=== PATIENT | male | born 1935 | race Asian ===

== ENCOUNTER 2018-05-04 03:27 | Observation (INO) | payer MEDICARE ==
[~2018-05-04] VITALS: Ht 157.5 cm; Wt 52.0 kg
[2018-05-04 04:00] LABS: BASOPHILS # (AUTO) 0.02 x10^3/uL (0-0.1); BASOPHILS % (AUTO) 0 % (0-1); EOSINOPHILS # (AUTO) 0.37 x10^3/uL (0-0.4); EOSINOPHILS % (AUTO) 4 % (1-7); LYMPHOCYTES # (AUTO) 1.35 x10^3/uL (1-3.4); LYMPHOCYTES % (AUTO) 14 % (22-44); MD NO; MEAN CORPUSCULAR HEMOGLOBIN 31.9 pg (27.5-34.5); MEAN CORPUSCULAR HGB CONC 33.8 g/dL (33.2-36.2); MEAN CORPUSCULAR VOLUME 94.3 fL (81-97); MEAN PLATELET VOLUME 9.6 fL (7.4-10.4); MONOCYTES # (AUTO) 0.98 x10^3/uL (0.2-0.8); MONOCYTES % (AUTO) 10 % (2-9); NEUTROPHILS # (AUTO) 6.82 x10^3/uL (1.8-6.8); NEUTROPHILS % (AUTO) 72 % (42-75); PLATELET COUNT 240 x10^3/uL (130-400); RED BLOOD COUNT 4.34 x10^6/uL (4.38-5.82); RED CELL DISTRIBUTION WIDTH 14.5 % (9.4-14.8)
--- NOTE | 2018-05-04 04:00 | NUR ---
PT PRESENTS TO ED C/O CPx30 MIN FISH WORM GROWER. STATES CP SUBSTERNAL/EPIGASTRIC THAT IS BURNING. STATES NO CARDIAC HX. IV ESTABLISHED FISH WORM GROWER AND 324 MG ASPIRIN GIVEN PER [facility]. ALL MONITORING APPLIED. VSS. CALL LIGHT WITHIN REACH.
[2018-05-04 04:06] LABS: ALANINE AMINOTRANSFERASE 23 U/L (12-78); ALBUMIN 3.8 g/dL (3.4-5.0); ANION GAP 7 mmol/L (5-15); CALCIUM 8.3 mg/dL (8.5-10.1); CHLORIDE 115 mmol/L (98-107); CREATININE 1.64 mg/dL (0.7-1.3)
[2018-05-04 04:10] LABS: ALKALINE PHOSPHATASE 36 U/L (45-117); BILIRUBIN,TOTAL 0.9 mg/dL (0.2-1.0); TOTAL PROTEIN 6.4 g/dL (6.4-8.2); TROPONIN I 0.016 ng/mL (0.000-0.045)
--- NOTE | 2018-05-04 04:57 | NUR ---
NADN. NO IMMEDIATE NEEDS FROM PT. CALL LIGHT WITHIN REACH. TBADM. AWAITING ADM BED.
[2018-05-04] MEDS ORDERED: hydrALAzine 20 MG/ML, 1ML IVPush PRN (05:00)
[2018-05-04] MEDS ORDERED: ACETAMINOPHEN 325 MG TABLET PO PRN ×2 (05:00→09:00)
[2018-05-04] MEDS ORDERED: SODIUM CHLORIDE 0.9% 1,000 ML IV SCH (05:00)
[2018-05-04] MEDS ORDERED: HEPARIN 5,000 UNITS/ML, 1ML SQ SCH (05:00)
[2018-05-04 05:46] VITALS: BP 142/87
[2018-05-04 05:51] VITALS: BP 142/87
[2018-05-04] MEDS ORDERED: HEPARIN 25,000 UNITS/500ML PMX 500 ML IV PRN (06:00)
[2018-05-04] MEDS ORDERED: HEPARIN 5,000 UNITS/ML, 1ML IV ONE (06:00)
[2018-05-04] MEDS ORDERED: HEPARIN 5,000 UNITS/ML, 1ML IV PRN (06:00)
[2018-05-04] MEDS ORDERED: ASPIRIN 325 MG TABLET PO SCH (06:00)
[2018-05-04] MEDS ORDERED: ALBU8.5H8 PO (06:03)
[2018-05-04 08:19] LABS: TROPONIN I 0.025 ng/mL (0.000-0.045)
[2018-05-04 09:00] VITALS: BP 142/77
[2018-05-04] MEDS ORDERED: AMLODIPINE 5 MG TABLET PO SCH (09:00)
[2018-05-04] MEDS ORDERED: MAGNESIUM CITRATE 300ML ORAL SOL PO ONE (09:00)
[2018-05-04] MEDS ORDERED: LISI-167 PO (10:16)
[2018-05-04] MEDS ORDERED: AMLO-150 PO (10:16)
[2018-05-04 12:18] LABS: TROPONIN I < 0.015 ng/mL (0.000-0.045)
[2018-05-04] MEDS ORDERED: ATORVASTATIN 40 MG TABLET PO SCH (21:00)
[2018-05-05] MEDS ORDERED: SODIUM CHLORIDE 0.9% 1,000 ML IV SCH (05:00)
== END 2018-05-04 15:22 | disposition home or self-care (01) ==
LOC: ED 03:59 → EDIP 04:23 → INTOOBSV 04:23 → 5SO 05:38
PROVIDERS: ADMIT Family Medicine; ATTEND Family Medicine
DX: R07.89 Other chest pain (principal); I10 Essential (primary) hypertension; E87.0 Hyperosmolality and hypernatremia; J44.9 Chronic obstructive pulmonary disease, unspecified; K59.00 Constipation, unspecified; N28.9 Disorder of kidney and ureter, unspecified; Z79.899 Other long term (current) drug therapy
CPT/HCPCS: 36415; 74022; 80053; 83690; 84484; 85025; 85520; 93005; 96365; 96366; 96376; 99284; G0378; J1644; J7030

== ENCOUNTER 2018-07-26 10:53 | Inpatient (IN) | payer MEDICARE ==
[~2018-07-26] VITALS: Ht 157.5 cm; Wt 55.3 kg
[~2018-07-26 10:53] MED LIST: ALBU8.5H8 PO; AMLO-150 PO; LISI-167 PO; LISI5TAB7 PO; METO25TA35 PO
--- NOTE | 2018-07-26 12:04 | NUR ---
PT SLEEPING IN [place], ON MONITOR, NO NEEDS AT THIS TIME. CALL LIGHT WITHIN REACH. AWAITING LAB RESULTS
[2018-07-26 12:17] LABS: MICROSCOPIC NOT IND
[2018-07-26 12:18] LABS: CULTURE INDICATED? NO
[2018-07-26 12:28] LABS: ALBUMIN 3.5 g/dL (3.4-5.0); ANION GAP 5 mmol/L (5-15); CALCIUM 7.9 mg/dL (8.5-10.1); CHLORIDE 118 mmol/L (98-107)
[2018-07-26 12:31] LABS: ALANINE AMINOTRANSFERASE 31 U/L (12-78); ALKALINE PHOSPHATASE 30 U/L (45-117); CREATININE 1.39 mg/dL (0.7-1.3); TOTAL PROTEIN 6.1 g/dL (6.4-8.2); TROPONIN I < 0.015 ng/mL (0.000-0.045)
--- NOTE | 2018-07-26 13:02 | NUR ---
CBC NEEDS TO BE REDRAWN, LAB TO COME FOR REDRAW
[2018-07-26 13:31] LABS: BASOPHILS # (AUTO) 0.06 x10^3/uL (0-0.1); BASOPHILS % (AUTO) 1 % (0-1); EOSINOPHILS # (AUTO) 0.23 x10^3/uL (0-0.4); EOSINOPHILS % (AUTO) 3 % (1-7); LYMPHOCYTES # (AUTO) 0.98 x10^3/uL (1-3.4); LYMPHOCYTES % (AUTO) 10 % (22-44); MD NO; MEAN CORPUSCULAR HGB CONC 32.7 g/dL (33.2-36.2); MEAN PLATELET VOLUME 10.2 fL (7.4-10.4); MONOCYTES # (AUTO) 0.68 x10^3/uL (0.2-0.8); MONOCYTES % (AUTO) 7 % (2-9); NEUTROPHILS # (AUTO) 7.51 x10^3/uL (1.8-6.8); NEUTROPHILS % (AUTO) 79 % (42-75); PLATELET COUNT 209 x10^3/uL (130-400); RED BLOOD COUNT 4.51 x10^6/uL (4.38-5.82); RED CELL DISTRIBUTION WIDTH 15.5 % (9.4-14.8)
--- NOTE | 2018-07-26 14:08 | NUR ---
PT AMBULATING UNSTEADY AND VERY SLOWLY, STATES HE FEELS SOB AND VERY WEAK. NOTIFIED. PT BACK TO BED AND PLACED ON MONITOR
[2018-07-26] MEDS ORDERED: ONDANSETRON 2MG/ML, 2ML IVPush PRN (15:30)
[2018-07-26] MEDS ORDERED: DEXTROSE 5% 1,000 ML IV SCH (15:30)
[2018-07-26] MEDS ORDERED: TEMAZEPAM 15 MG CAPSULE PO PRN (15:30)
[2018-07-26] MEDS ORDERED: ACETAMINOPHEN 325 MG TABLET PO PRN (15:30)
[2018-07-26] MEDS ORDERED: hydrALAzine 20 MG/ML, 1ML IVPush PRN (15:30)
--- NOTE | 2018-07-26 15:32 | NUR ---
REPORT TO IVANA BEST
[2018-07-26 16:02] VITALS: BP 123/80
[2018-07-26] MEDS: AZITHROMYCIN 500 MG in SODIUM CHLORIDE 0.9% 250 ML IV SCH (16:57)
[2018-07-26] MEDS: GUAIFENESIN 200 MG TABLET PO SCH ×2 (16:57→20:35)
[2018-07-26] MEDS: methylPREDNISolone SOD SUCC 125 MG/2 ML IVPush SCH ×2 (16:57→20:33)
[2018-07-26] MEDS ORDERED: ALBUTEROL SULFATE 2.5 MG/3 ML NPPB PRN (17:00)
[2018-07-26] MEDS: HEPARIN 5,000 UNITS/ML, 1ML SQ SCH ×2 (17:03→23:45)
[2018-07-26 21:18] VITALS: BP 125/81
[2018-07-27 02:34] VITALS: BP 108/68
[2018-07-27] MEDS: methylPREDNISolone SOD SUCC 125 MG/2 ML IVPush SCH ×4 (03:35→21:54)
[2018-07-27 05:30] LABS: MEAN CORPUSCULAR HEMOGLOBIN 32.3 pg (27.5-34.5); MEAN CORPUSCULAR HGB CONC 32.8 g/dL (33.2-36.2); MEAN CORPUSCULAR VOLUME 98.3 fL (81-97); MEAN PLATELET VOLUME 10.4 fL (7.4-10.4); PLATELET COUNT 204 x10^3/uL (130-400); RED BLOOD COUNT 4.59 x10^6/uL (4.38-5.82); RED CELL DISTRIBUTION WIDTH 14.7 % (9.4-14.8)
[2018-07-27 05:40] LABS: CHLORIDE 112 mmol/L (98-107)
[2018-07-27 05:54] LABS: ALANINE AMINOTRANSFERASE 27 U/L (12-78); ALBUMIN 3.5 g/dL (3.4-5.0); ALKALINE PHOSPHATASE 32 U/L (45-117); ANION GAP 9 mmol/L (5-15); BILIRUBIN,TOTAL 1.2 mg/dL (0.2-1.0); CALCIUM 8.5 mg/dL (8.5-10.1); TOTAL PROTEIN 6.2 g/dL (6.4-8.2)
[2018-07-27 05:59] LABS: BASOPHILS % (AUTO) 0 % (0-1); EOSINOPHILS % (AUTO) 0 % (1-7); LYMPHOCYTES # (AUTO) 0.45 x10^3/uL (1-3.4); LYMPHOCYTES % (AUTO) 5 % (22-44); MD SCAN; MONOCYTES # (AUTO) 0.03 x10^3/uL (0.2-0.8); MONOCYTES % (AUTO) 0 % (2-9); NEUTROPHILS # (AUTO) 9.45 x10^3/uL (1.8-6.8); NEUTROPHILS % (AUTO) 95 % (42-75)
[2018-07-27 07:07] VITALS: BP 122/73
[2018-07-27] MEDS: HEPARIN 5,000 UNITS/ML, 1ML SQ SCH ×2 (08:28→15:34)
[2018-07-27] MEDS: GUAIFENESIN 200 MG TABLET PO SCH ×3 (08:28→21:54)
[2018-07-27] MEDS: AMLODIPINE 5 MG TABLET PO SCH (08:29)
[2018-07-27] MEDS ORDERED: AMLODIPINE 5 MG TABLET PO SCH (09:00)
[2018-07-27 14:31] VITALS: BP 120/74
[2018-07-27] MEDS: AZITHROMYCIN 500 MG in SODIUM CHLORIDE 0.9% 250 ML IV SCH (15:35)
[2018-07-27 20:34] VITALS: BP 104/65
[2018-07-28] MEDS: HEPARIN 5,000 UNITS/ML, 1ML SQ SCH ×4 (00:34→23:49)
[2018-07-28 02:12] VITALS: BP 107/70
[2018-07-28] MEDS: methylPREDNISolone SOD SUCC 125 MG/2 ML IVPush SCH ×4 (04:16→22:11)
[2018-07-28] MEDS: AMLODIPINE 5 MG TABLET PO SCH (09:27)
[2018-07-28] MEDS: GUAIFENESIN 200 MG TABLET PO SCH ×3 (09:28→20:13)
[2018-07-28 09:34] VITALS: BP 108/72
[2018-07-28 10:20] VITALS: BP 123/71
[2018-07-28 10:21] VITALS: BP 121/70
[2018-07-28 11:07] LABS: TROPONIN I < 0.015 ng/mL (0.000-0.045)
[2018-07-28 14:00] VITALS: BP 120/75
[2018-07-28] MEDS: AZITHROMYCIN 500 MG in SODIUM CHLORIDE 0.9% 250 ML IV SCH (15:42)
[2018-07-28 19:49] VITALS: BP 120/75
[2018-07-29 03:25] VITALS: BP 103/65
[2018-07-29] MEDS: methylPREDNISolone SOD SUCC 125 MG/2 ML IVPush SCH ×3 (04:17→17:14)
[2018-07-29 07:13] VITALS: BP 101/58
[2018-07-29] MEDS: HEPARIN 5,000 UNITS/ML, 1ML SQ SCH ×2 (07:38→17:13)
[2018-07-29] MEDS: GUAIFENESIN 200 MG TABLET PO SCH ×2 (07:38→17:13)
[2018-07-29 10:27] VITALS: BP 120/70
[2018-07-29] MEDS: AMLODIPINE 5 MG TABLET PO SCH (10:28)
[2018-07-29 14:54] VITALS: BP 125/82
[2018-07-29] MEDS: AZITHROMYCIN 500 MG in SODIUM CHLORIDE 0.9% 250 ML IV SCH (15:01)
[2018-07-29] MEDS ORDERED: LACT1TAB13 PO (16:26)
[2018-07-29] MEDS ORDERED: AZIT500T PO (16:26)
[2018-07-29] MEDS ORDERED: PRED10TA PO (16:26)
[2018-07-29] MEDS ORDERED: GUAI200T3 PO (16:26)
[2018-07-29] MEDS ORDERED: FLUT1DIS IH (16:26)
[2018-07-29] MEDS ORDERED: TIOT18CA INH (16:26)
== END 2018-07-29 18:28 | disposition home or self-care (01) | DRG 682 ==
LOC: ED 12:30 → EDIP 14:41 → 4NOR 15:56
PROVIDERS: ADMIT Internal Medicine; ATTEND Internal Medicine
DX: N17.0 Acute kidney failure with tubular necrosis (principal); J96.00 Acute respiratory failure, unspecified whether with hypoxia or hypercapnia; J44.1 Chronic obstructive pulmonary disease with (acute) exacerbation; E87.0 Hyperosmolality and hypernatremia; J44.0 Chronic obstructive pulmonary disease with (acute) lower respiratory infection; I11.9 Hypertensive heart disease without heart failure; J20.9 Acute bronchitis, unspecified; Z60.2 Problems related to living alone; E86.0 Dehydration; Z87.891 Personal history of nicotine dependence
CPT/HCPCS: 36415; 71045; 80053; 81003; 82306; 83735; 84100; 84443; 84484; 85025; 93005; 99285; G0378; J0456; J1644; J7070; J2930; J7050

== ENCOUNTER 2018-08-05 02:25 | Inpatient (IN) | payer MEDICARE ==
[~2018-08-05] VITALS: Ht 157.5 cm; Wt 52.2 kg
[~2018-08-05 02:25] MED LIST changes: +AZIT500T PO; +FLUT1DIS IH; +GUAI200T3 PO; +LACT1TAB13 PO; +PRED10TA PO; +TIOT18CA INH
--- NOTE | 2018-08-05 02:39 | NUR ---
CHEST TIGHTNESS AND SOB X 1 HOUR PT VISITING FROM [place] HAS BEEN IN [place] X 2 DAYS
[2018-08-05] MEDS ORDERED: ONDANSETRON 2MG/ML, 2ML ONE (02:43)
[2018-08-05] MEDS ORDERED: MORPHINE SULFATE 4 MG/ML, 1ML ONE (02:43)
[2018-08-05 02:45] LABS: MEAN CORPUSCULAR HEMOGLOBIN 32.8 pg (27.5-34.5); MEAN CORPUSCULAR VOLUME 99.3 fL (81-97); MEAN PLATELET VOLUME 9.8 fL (7.4-10.4); PLATELET COUNT 220 x10^3/uL (130-400); RED BLOOD COUNT 4.22 x10^6/uL (4.38-5.82); RED CELL DISTRIBUTION WIDTH 15.4 % (9.4-14.8)
[2018-08-05 02:55] LABS: INTERNATIONAL NORMALIZED RATIO 0.96 (0.93-1.1); PROTHROMBIN TIME 10.1 Seconds (9.6-11.5)
[2018-08-05 02:57] LABS: ALANINE AMINOTRANSFERASE 31 U/L (12-78); ALBUMIN 3.3 g/dL (3.4-5.0); ANION GAP 7 mmol/L (5-15); CALCIUM 8.3 mg/dL (8.5-10.1); CHLORIDE 109 mmol/L (98-107); CREATININE 1.63 mg/dL (0.7-1.3)
[2018-08-05] MEDS ORDERED: SODIUM CHLORIDE FLUSH 10ML SYR IVF ONE ×2 (03:00→03:30)
[2018-08-05] MEDS ORDERED: ONDANSETRON 2MG/ML, 2ML IVPush ONE (03:00)
[2018-08-05] MEDS ORDERED: MORPHINE SULFATE 4 MG/ML, 1ML IVPush PRN (03:00)
[2018-08-05 03:01] LABS: ALKALINE PHOSPHATASE 38 U/L (45-117); BILIRUBIN,TOTAL 0.6 mg/dL (0.2-1.0); TOTAL PROTEIN 5.7 g/dL (6.4-8.2); TROPONIN I 0.027 ng/mL (0.000-0.045)
[2018-08-05 03:07] LABS: MD YES
[2018-08-05 03:16] LABS: BAND#(MANUAL) 0.18 x10^3/uL; BANDS%(MANUAL) 1 % (0-7); LYMPH#(MANUAL) 1.96 x10^3/uL (1-3.4); LYMPHS% (MANUAL) 11 % (22-44); MONOS#(MANUAL) 1.25 x10^3/uL (0.3-2.7); MONOS% (MANUAL) 7 % (2-9); SEG#(MANUAL) 14.42 x10^3/uL (1.8-6.8); SEGS% (MANUAL) 81 % (42-75)
[2018-08-05 03:17] LABS: <PLATELET ESTIMATE> ADEQUATE; <RBC MORPHOLOGY> NORMAL
[2018-08-05 03:18] LABS: <PLT MORPHOLOGY> NORMAL PLT MORPH
[2018-08-05] MEDS ORDERED: SODIUM CHLORIDE 0.9% 1,000 ML IV ONE (03:29)
[2018-08-05] MEDS ORDERED: methylPREDNISolone SOD SUCC 125 MG/2 ML IVP ONE (03:30)
[2018-08-05] MEDS ORDERED: ALBUTEROL/IPRATROPIUM 2.5MG/0.5MG, 3 ML NPPB ONE (03:30)
[2018-08-05] MEDS ORDERED: CEFTRIAXONE PMX 1GM/50ML 50 ML IVPB ONE (03:30)
[2018-08-05] MEDS ORDERED: AZITHROMYCIN 500 MG in SODIUM CHLORIDE 0.9% 250 ML IVPB ONE (03:30)
[2018-08-05] MEDS ORDERED: CEFTRIAXONE PMX 1GM/50ML 50 ML ONE (03:49)
[2018-08-05] MEDS ORDERED: methylPREDNISolone SOD SUCC 125 MG/2 ML ONE (03:50)
--- NOTE | 2018-08-05 04:04 | NUR ---
REPORT GIVEN TO FLOOR WITH TECH ON MONITORS
[2018-08-05 04:42] VITALS: BP 99/59
[2018-08-05] MEDS ORDERED: AZITHROMYCIN 500 MG in SODIUM CHLORIDE 0.9% 250 ML IV SCH (06:30)
[2018-08-05] MEDS ORDERED: ACETAMINOPHEN 325 MG TABLET PO PRN ×2 (06:30→08:00)
[2018-08-05] MEDS ORDERED: ONDANSETRON 2MG/ML, 2ML IVPush PRN (06:30)
[2018-08-05] MEDS ORDERED: BISACODYL 10 MG SUPP PR PRN (06:30)
[2018-08-05] MEDS ORDERED: POLYETHYLENE GLYCOL 17 GM PACKET PO PRN (06:30)
[2018-08-05] MEDS ORDERED: hydrALAzine 20 MG/ML, 1ML IVPush PRN (06:30)
[2018-08-05 06:38] VITALS: BP 97/60
[2018-08-05] MEDS: CEFTRIAXONE PMX 1GM/50ML 50 ML IV SCH (07:48)
[2018-08-05] MEDS: SODIUM CHLORIDE 0.9% 1,000 ML IV SCH ×2 (07:48→23:05)
[2018-08-05] MEDS: HEPARIN 5,000 UNITS/ML, 1ML SQ SCH ×3 (07:48→22:47)
[2018-08-05] MEDS: SENNA/DOCUSATE TABLET PO SCH (08:14)
[2018-08-05 10:18] LABS: TROPONIN I < 0.015 ng/mL (0.000-0.045)
[2018-08-05] MEDS ORDERED: ALBUTEROL/IPRATROPIUM 2.5MG/0.5MG, 3 ML NPPB PRN (10:30)
[2018-08-05] MEDS ORDERED: ALBUTEROL/IPRATROPIUM 2.5MG/0.5MG, 3 ML NPPB SCH (10:30)
[2018-08-05 12:08] VITALS: BP 94/60
[2018-08-05] MEDS: ALBUTEROL/IPRATROPIUM 2.5MG/0.5MG, 3 ML NPPB SCH ×2 (14:36→21:42)
[2018-08-05 20:03] VITALS: BP 114/67
[2018-08-05] MEDS: BUDESONIDE 0.5 MG/2 ML INHA NPPB SCH (21:42)
[2018-08-06 01:00] VITALS: BP 109/68
[2018-08-06] MEDS: ALBUTEROL/IPRATROPIUM 2.5MG/0.5MG, 3 ML NPPB SCH ×4 (03:00→22:40)
[2018-08-06 05:52] LABS: MEAN CORPUSCULAR HGB CONC 33.1 g/dL (33.2-36.2); MEAN CORPUSCULAR VOLUME 99.7 fL (81-97); PLATELET COUNT 191 x10^3/uL (130-400); RED BLOOD COUNT 3.83 x10^6/uL (4.38-5.82)
[2018-08-06 06:04] LABS: ANION GAP 4 mmol/L (5-15); CALCIUM 8.3 mg/dL (8.5-10.1); CHLORIDE 110 mmol/L (98-107)
[2018-08-06 06:05] LABS: CREATININE 1.31 mg/dL (0.7-1.3)
[2018-08-06 06:14] LABS: BASOPHILS # (AUTO) 0.02 x10^3/uL (0-0.1); BASOPHILS % (AUTO) 0 % (0-1); EOSINOPHILS # (AUTO) 0.05 x10^3/uL (0-0.4); EOSINOPHILS % (AUTO) 0 % (1-7); LYMPHOCYTES # (AUTO) 0.77 x10^3/uL (1-3.4); LYMPHOCYTES % (AUTO) 4 % (22-44); MD SCAN; MONOCYTES # (AUTO) 0.84 x10^3/uL (0.2-0.8); MONOCYTES % (AUTO) 4 % (2-9); NEUTROPHILS # (AUTO) 17.73 x10^3/uL (1.8-6.8); NEUTROPHILS % (AUTO) 91 % (42-75)
[2018-08-06] MEDS: CEFTRIAXONE PMX 1GM/50ML 50 ML IV SCH (06:24)
[2018-08-06] MEDS: SODIUM CHLORIDE 0.9% 1,000 ML IV SCH (06:24)
[2018-08-06] MEDS: HEPARIN 5,000 UNITS/ML, 1ML SQ SCH ×3 (06:25→22:32)
[2018-08-06] MEDS: BUDESONIDE 0.5 MG/2 ML INHA NPPB SCH ×2 (07:19→21:43)
[2018-08-06 07:44] VITALS: BP 125/70
[2018-08-06] MEDS: SENNA/DOCUSATE TABLET PO SCH (09:00)
[2018-08-06] MEDS: DOXYCYCLINE 100MG TABLET PO SCH ×2 (12:10→20:52)
[2018-08-06 13:04] VITALS: BP 113/73
[2018-08-06 19:27] VITALS: BP 118/65
[2018-08-07] MEDS: SODIUM CHLORIDE 0.9% 1,000 ML IV SCH (01:25)
[2018-08-07 01:26] VITALS: BP 133/88
[2018-08-07] MEDS: ALBUTEROL/IPRATROPIUM 2.5MG/0.5MG, 3 ML NPPB SCH ×3 (02:09→15:35)
[2018-08-07 05:30] LABS: ANION GAP 6 mmol/L (5-15); CALCIUM 8.6 mg/dL (8.5-10.1); CHLORIDE 108 mmol/L (98-107)
[2018-08-07 05:32] LABS: CREATININE 1.24 mg/dL (0.7-1.3)
[2018-08-07 05:34] LABS: MEAN CORPUSCULAR HEMOGLOBIN 32.4 pg (27.5-34.5); MEAN CORPUSCULAR HGB CONC 32.5 g/dL (33.2-36.2); MEAN CORPUSCULAR VOLUME 99.8 fL (81-97); MEAN PLATELET VOLUME 9.8 fL (7.4-10.4); PLATELET COUNT 198 x10^3/uL (130-400); RED BLOOD COUNT 4.25 x10^6/uL (4.38-5.82)
[2018-08-07 05:57] LABS: BASOPHILS # (AUTO) 0.01 x10^3/uL (0-0.1); BASOPHILS % (AUTO) 0 % (0-1); EOSINOPHILS # (AUTO) 0.08 x10^3/uL (0-0.4); EOSINOPHILS % (AUTO) 1 % (1-7); LYMPHOCYTES # (AUTO) 0.96 x10^3/uL (1-3.4); LYMPHOCYTES % (AUTO) 7 % (22-44); MD SCAN; MONOCYTES # (AUTO) 0.89 x10^3/uL (0.2-0.8); MONOCYTES % (AUTO) 7 % (2-9); NEUTROPHILS # (AUTO) 11.82 x10^3/uL (1.8-6.8); NEUTROPHILS % (AUTO) 86 % (42-75)
[2018-08-07] MEDS: CEFTRIAXONE PMX 1GM/50ML 50 ML IV SCH (06:22)
[2018-08-07] MEDS: HEPARIN 5,000 UNITS/ML, 1ML SQ SCH ×2 (06:22→14:30)
[2018-08-07] MEDS ORDERED: AMOXICILLIN/CLAV 875-125MG TABLET PO SCH (07:30)
[2018-08-07 08:00] VITALS: BP 126/83
[2018-08-07] MEDS ORDERED: DOXY100T PO (08:07)
[2018-08-07] MEDS ORDERED: AMOX1TAB12 PO (08:07)
[2018-08-07] MEDS: SENNA/DOCUSATE TABLET PO SCH (09:00)
[2018-08-07] MEDS: DOXYCYCLINE 100MG TABLET PO SCH (09:39)
[2018-08-07] MEDS: BUDESONIDE 0.5 MG/2 ML INHA NPPB SCH (10:14)
[2018-08-07 14:00] VITALS: BP 121/80
== END 2018-08-07 17:00 | disposition home or self-care (01) | DRG 871 ==
LOC: ED 02:54 → EDIP 03:30 → 4WST 06:30 → DCLOUNGE 08-07 16:42
PROVIDERS: ADMIT Family Medicine; ATTEND Family Medicine
DX: A41.9 Sepsis, unspecified organism (principal); J96.20 Acute and chronic respiratory failure, unspecified whether with hypoxia or hypercapnia; J15.9 Unspecified bacterial pneumonia; J44.1 Chronic obstructive pulmonary disease with (acute) exacerbation; N17.9 Acute kidney failure, unspecified; I50.42 Chronic combined systolic (congestive) and diastolic (congestive) heart failure; J44.0 Chronic obstructive pulmonary disease with (acute) lower respiratory infection; G47.00 Insomnia, unspecified; I11.0 Hypertensive heart disease with heart failure; I48.91 Unspecified atrial fibrillation; L80 Vitiligo; Z87.891 Personal history of nicotine dependence; Z91.19 Patient's noncompliance with other medical treatment and regimen
CPT/HCPCS: 36415; 71045; 80048; 80053; 83735; 83880; 84484; 85025; 85610; 85730; 87040; 93005; 94640; 96365; 96375; G0378; J0456; J0696; J1644; J2405; J7620; J7626; J2270; J2930; J7030; J7050

== ENCOUNTER 2018-08-08 09:23 | Emergency (ER) | payer MEDICARE ==
[~2018-08-08] VITALS: Ht 157.5 cm; Wt 60.0 kg
[~2018-08-08 09:23] MED LIST changes: +AMOX1TAB12 PO; +DOXY100T PO
--- NOTE | 2018-08-08 09:38 | NUR ---
FIRST CONTACT WITH PT. PT IS A/O X 4, BUT REPORTS HE "IS JUST CONFUSED". PT UNABLE TO PROVIDE SPECIFIC REASONS WHY HE FEELS CONFUSED. PT HAD MULTIPLE RECENT TRIPS TO OUR ER, LAST VISIT FOR PNEUMONIA. WE GAVE PT ABX, HOWEVER HE STATES "I DIDN'T TAKE THEM BECAUSE I LOST THEM".
--- NOTE | 2018-08-08 09:55 | NUR ---
PT EVALUATED BY ERP, PLAN OF CARE FOR SW CONSULT TO MAKE ARRANGEMENT BACK TO [place]. EKG COMPLETE, CARDIAC, SPO2, AND NIBP IN PLACE. CALL LIGHT WITHIN REACH.
[2018-08-08 10:16] LABS: MEAN CORPUSCULAR HEMOGLOBIN 32.5 pg (27.5-34.5); MEAN CORPUSCULAR HGB CONC 33.4 g/dL (33.2-36.2); MEAN CORPUSCULAR VOLUME 97.3 fL (81-97); PLATELET COUNT 212 x10^3/uL (130-400); RED BLOOD COUNT 4.46 x10^6/uL (4.38-5.82); RED CELL DISTRIBUTION WIDTH 15.3 % (9.4-14.8)
[2018-08-08 10:24] LABS: ANION GAP 5 mmol/L (5-15); CALCIUM 8.4 mg/dL (8.5-10.1); CHLORIDE 111 mmol/L (98-107); CREATININE 1.15 mg/dL (0.7-1.3)
[2018-08-08 10:32] LABS: MD YES
[2018-08-08 10:34] LABS: BAND#(MANUAL) 0.27 x10^3/uL; BANDS%(MANUAL) 2 % (0-7); EOS#(MANUAL) 0.41 x10^3/uL (0.0-0.4); EOS% (MANUAL) 3 % (1-7); LYMPH#(MANUAL) 0.68 x10^3/uL (1-3.4); LYMPHS% (MANUAL) 5 % (22-44); METAMYELOCYTES# (MANUAL) 0.68 x10^3/uL (0-0); METAMYELOCYTES% (MANUAL) 5 % (0-1); MONOS#(MANUAL) 1.36 x10^3/uL (0.3-2.7); MONOS% (MANUAL) 10 % (2-9); MYELOCYTES# (MANUAL) 0.14 x10^3/uL (0-0); MYELOCYTES% (MANUAL) 1 % (0-0); SEG#(MANUAL) 10.06 x10^3/uL (1.8-6.8); SEGS% (MANUAL) 74 % (42-75)
[2018-08-08 10:35] LABS: <PLATELET ESTIMATE> ADEQUATE; <PLT MORPHOLOGY> NORMAL PLT MORPH; ANISOCYTOSIS 1+; OVALOCYTES 1+
--- NOTE | 2018-08-08 10:36 | NUR ---
Patient is resting comfortably in bed. Vital Signs within normal limits.
--- NOTE | 2018-08-08 11:18 | NUR ---
Patient is resting comfortably in bed. Vital Signs within normal limits.
[2018-08-08 11:45] VITALS: BP 147/99
--- NOTE | 2018-08-08 11:59 | NUR ---
SPOKE WITH SW REGARDING PT TRANSPORT BACK HOME, SW OFFERED HELP, PT DECLINED HELP.
--- NOTE | 2018-08-08 12:55 | NUR ---
Patient/Caregiver given discharge instructions and they have confirmed that they understand the instructions. Patient ambulatory with steady gait. Taxi voucher provided, meal tray eaten.
== END 2018-08-08 12:56 | disposition home or self-care (01) ==
LOC: ED 10:10
DX: J44.9 Chronic obstructive pulmonary disease, unspecified (principal); R53.1 Weakness; I48.91 Unspecified atrial fibrillation; I10 Essential (primary) hypertension; Z87.891 Personal history of nicotine dependence
CPT/HCPCS: 36415; 80048; 85025; 93005; 99284